=== PATIENT | male | born 1955 | race Caucasian/White ===

== ENCOUNTER 2025-02-18 10:41 | Day surgery (SDC) | payer MEDICARE, OTHER ==
[2025-02-18] VITALS (38 sets, daily range): BP systolic 99–156; BP diastolic 59–123
[~2025-02-18] VITALS: Ht 177.8 cm; Wt 102.4 kg
[~2025-02-18 10:41] MED LIST: ALBU90OI INH; AMOCLA500 PO; Lactated Ringer's 1,000 ML IV SCH; MELO7.5 PO; METO50ER PO; TIOT18 INH
--- NOTE | 2025-02-18 11:19 | NUR ---
History, Chart, Medications and Allergies reviewed before start of procedure. Pre-Op teaching done. Pt verbalizes understanding. Patient confirms NPO status and agrees with scheduled surgery. Patient States Post-Procedure ride home has been arranged WITH , JANIYA.
[2025-02-18] MEDS ORDERED: Lidocaine 2% 5 ML SDV ONE (11:49)
[2025-02-18] MEDS ORDERED: EpiNEPhrine 1 MG/1 ML 1ML Vial ONE (11:49)
[2025-02-18] MEDS ORDERED: Lidocaine HCl 4% 5 ML SDA ONE (11:53)
[2025-02-18] MEDS ORDERED: propofoL 40 ML IV ONE (11:53)
[2025-02-18] MEDS ORDERED: Lidocaine 2% Jelly Uro-Jet ONE (12:06)
[2025-02-18] MEDS ORDERED: FentaNYL Citrate 50 MCG/ML 2 ML Injection ONE ×2 (12:14→13:34)
--- NOTE | 2025-02-18 12:23 | NUR ---
02/18/25 1223 Konstantin Wiggins CONFIRMED AND REVIEWED H&P, MEDCICATIONS, ALLERGIES, MEDICAL HISTORY, RESPIRATORY HISTORY, VITAL SIGNS, 3-LEAD EKG, CONSENTS, AND PHYSICIAN ORDERS. PATIENT CONFIRMS NPO STATUS AND AGREES WITH SCHEDULED PROCEDURE. MONITOR INTACT WITH CONTINUOUS PULSE OXIMETRY, CAPNOGRAPHY, 3-LEAD EKG, INTERMITTENT BP. SUPPLEMENTAL O2 TO BE TITRATED THROUGHOUT PROCEDURE TO MAINTAIN O2 SATURATION ABOVE 90%. PATIENT DETERMINED TO BE ASA APPROPRIATE FOR PROPOFOL SEDATION PRIOR TO START OF PROCEDURE BY DR. SEWELL PROCEDURE DONE W/FLUMARIAN
--- NOTE | 2025-02-18 15:19 | NUR ---
Discharge instructions reviewed with patient. Patient verbalizes understanding. Copy given to patient to take home. Pt able to drink small sips of water, no coughing. Patient States Post-Procedure ride home has been arranged. Discharged via wheelchair to private car for ride home.
== END 2025-02-18 15:30 | disposition home or self-care (01) ==
LOC: ORSCMMR 10:41 → ORD 12:00 → ORSCMMR 15:30
PROVIDERS: Student in an Organized Health Care Education/Training Program
PROC: 0BD68ZX Extraction of Right Lower Lobe Bronchus, Via Natural or Artificial Opening Endoscopic, Diagnostic (ICD-10-PCS; principal; 2025-02-18 12:00)
PROC: 0B9F8ZX Drainage of Right Lower Lung Lobe, Via Natural or Artificial Opening Endoscopic, Diagnostic (ICD-10-PCS; principal; 2025-02-18 12:00)
DX: R91.8 Other nonspecific abnormal finding of lung field (principal); Z87.891 Personal history of nicotine dependence; J45.909 Unspecified asthma, uncomplicated; Z79.51 Long term (current) use of inhaled steroids; Z79.899 Other long term (current) drug therapy
CPT/HCPCS: 71045; 87070; 87205; 88108; 88305; 88312; J0171; J2003; J2704; J3010; J7120